=== PATIENT | female | born 1950 | race Caucasian/White ===

== ENCOUNTER 2024-12-12 09:52 | Emergency (ER) | payer MEDICARE, SELFPAY ==
--- NOTE | 2024-12-12 10:06 | ED_ITS ---
HPI - URI/Sore Throat General Chief Complaint: Upper Respiratory Infection Stated Complaint: Sinus Time Seen by Provider: 12/12/24 10:06 Source: patient, RN notes reviewed and old records reviewed Mode of arrival: ambulatory Limitations: no limitations History of Present Illness HPI Narrative: Patient presents with complaints of sinus pain and congestion that is been present for 7-10 days. She has been traveling quite a bit, both flying and sailing. Says she began to get sick while she was traveling. She is complaining of postnasal drainage, sinus pain and congestion, cough. She denies any fever. She does report that she is more tired than normal. Has been taking Mucinex for her symptoms with moderate relief. Her blood pressure is elevated, she admits that she did not take her antihypertensive medications this morning. She denies any chest pain, dizziness, shortness of breath Related Data Home Medications ?Medication ?Instructions ?Recorded ?Confirmed ?Last Taken ?Type amlodipine 10 mg tablet mg 12/12/24 Unknown History atorvastatin .ROUTE 12/12/24 Unknown History dapagliflozin propanediol .ROUTE 12/12/24 Unknown History famotidine PO 12/12/24 Unknown History metoprolol tartrate .ROUTE 12/12/24 Unknown History omeprazole 20 mg capsule,delayed mg 12/12/24 Unknown History release semaglutide subcut 12/12/24 Unknown History venlafaxine 150 mg mg PO 12/12/24 Unknown History capsule,extended release 24 hr Allergies Allergy/AdvReac Type Severity Reaction Status Date / Time Sulfa (Sulfonamide Allergy Intermediate RASH Verified 12/12/24 10:17 Antibiotics) Review of Systems Review of Systems: All systems reviewed & are unremarkable except as noted in HPI and below Constitutional: Constitutional: Reports no additional constitutional complaints, Reports daytime sleepiness, Reports headache(s) and Reports lethargy ENT: Reports system reviewed and no additional complaints, except as document ed, Reports nasal congestion, Reports nasal discharge, Reports sinus pain and Reports sinus pressure Cardiovascular: Cardiovascular: Reports no additional cardiovascular complaints Respiratory: Respiratory: Reports no additional respiratory complaints and Reports cough Gastrointestinal: Gastrointestinal: Reports no additional gastrointestinal complaints PMFSH Comments At the time of my signature, I reviewed and agree with the nursing past medical, surgical, social, and family history. There is no relevant family history pertinent to the patient complaint. Exam Const: General: cooperative, no acute distress, alert and awake Orientation/consciousness: oriented to person, oriented to place and oriented to time HENMT: Head: normal to inspection Face/Nose/Sinus: sinus tenderness Mouth: Yes moist mucous membranes Resp: Effort & Inspection: normal respiratory effort and able to speak in complete sentences Auscultation: clear to auscultation bilaterally, no crackles, no rales, no rhonchi and no wheezes Cardio: Palpation: normal PMI Rate: regular rate Rhythm: regular rhythm Heart sounds: S1 normal heart sound present and S2 normal heart sound present Neuro: General: oriented to person, oriented to place and oriented to time Cranial nerves: Yes CN's II-XII intact bilaterally Psych: Appearance: grossly normal Thought process: Normal thought process present Insight: Good insight present (Psych) Judgement: Good judgement present (Psych) Course Course Level of Care: Express Care Visit Vital Signs Vital signs: Reviewed MDM - URI/Sore Throat MDM Narrative Medical decision making narrative: History and exam consistent with sinusitis. Patient nontoxic appearing, stable for discharge home on p.o. antibiotic therapy. Importance of taking all medications, including her antihypertensives as prescribed, was discussed at length. Emergency department precautions discussed. Discharge instructions reviewed with patient, as well as provided in writing per nursing staff. The instructions also include specific and strict return/GO TO THE ER as well as f/u information. All questions have been answered, and the patient deny any further questions with discharge and discharge plan. Some parts of this dictation were generated by voice recognition software and may contain typographical and/or grammatical inaccuracies. Differential Diagnosis Differential diagnosis: Likely upper respiratory infection, otitis media and sinusitis Medical Records Attestation: I reviewed the patient's medical records. Discharge Plan Discharge Clinical Impression: Sinusitis Qualifiers: Sinusitis location: maxillary Chronicity: acute Recurrence: not specified as recurrent Qualified Code(s): J01.00 - Acute maxillary sinusitis, unspecified Patient Disposition: Home, Self-Care Condition: Stable Instructions: Antibiotic Form, Sinusitis (ED) Additional Instructions: Take medications as prescribed. Follow with primary care provider. Emergency department for new or worsening symptoms Patient Language: Cypriot Prescriptions: New amoxicillin-pot clavulanate 875-125 mg tablet 1 tablet PO Q12H Qty: 14 0RF No Action venlafaxine 150 mg capsule,extended release 24hr PO amlodipine 10 mg tablet omeprazole 20 mg capsule,delayed release(DR/EC) atorvastatin .ROUTE semaglutide [Ozempic] subcut metoprolol tartrate .ROUTE dapagliflozin propanediol [Farxiga] .ROUTE famotidine [Heartburn Relief (famotidine)] PO Follow-up/Referrals: Moo,Princess Greenberg MD [Primary Care Provider] - 1 Week Time of Disposition: 10:28
[2024-12-12 10:07] VITALS: BP 176/78; PULSE 73; RESP 19; TEMP 36.4; O2SAT 98
== END 2024-12-12 10:35 | disposition home or self-care (01) ==
PROVIDERS: Emergency Provider Nurse Practitioner Family; PCP Family Medicine Sports Medicine
DX: J01.00 Acute maxillary sinusitis, unspecified (principal); I10 Essential (primary) hypertension; Z79.899 Other long term (current) drug therapy
CPT/HCPCS: 99203; G0463